=== PATIENT | female | born 1995 | race American Indian/Alaskan Native ===

== ENCOUNTER 2017-01-21 11:10 | Emergency (ER) | payer MEDICAID ==
[2017-01-21 11:49] VITALS: BP 114/61
[2017-01-21 12:47] LABS: Bilirubin,Urine NEG (Negative); Blood,Urine NEG (Negative); Ketones,Urine NEG (Negative); Leukocyte Esterase,Urine NEG (Negative); Mucus,Urine 1+ /HPF; Nitrite,Urine NEG (Negative); Protein,Urine <15 mg/dL mg/dL (Negative); Urobilinogen,Urine < 2.0 mg/dL (<2.0)
== END 2017-01-21 14:15 | disposition left against medical advice (07) ==
LOC: ED 11:10
DX: R63.4 Abnormal weight loss (principal); R10.30 Lower abdominal pain, unspecified; Z53.21 Procedure and treatment not carried out due to patient leaving prior to being seen by health care provider
CPT/HCPCS: 81001; 81025

== ENCOUNTER 2017-05-26 10:51 | Emergency (ER) | payer MEDICAID, OTHER ==
[2017-05-26 11:43] VITALS: BP 108/69
[2017-05-26 12:23] LABS: Bilirubin,Urine NEG (Negative); Blood,Urine MOD (Negative); Ketones,Urine TR mg/dL (Negative); Leukocyte Esterase,Urine NEG (Negative); Mucus,Urine 3+ /HPF; Nitrite,Urine NEG (Negative)
--- NOTE | 2017-05-26 12:58 | Emergency Department Report ---
Chief Complaint: Vaginal Bleeding Stated Complaint: VAG BLEEDING /+ TEST Time Seen by Provider: 05/26/17 12:56 - HPI History of Present Illness: Pt c/o vaginal bleeding. PT has positive home test - ROS Review of Systems: + bleeding - Exam Vital Signs: Vital Signs 05/26/17 11:39 Temperature 98.9 F Pulse Rate 65 Respiratory 16 Rate Blood Pressure 108/69 O2 Sat by Pulse 100 Oximetry Physical Exam: pt looks well, non toxic steady gait MSE screening note: Focused history and physical exam performed. Due to findings the following was ordered: labs, us ED Disposition for MSE Condition: Stable
--- NOTE | 2017-05-26 14:25 | Ultrasound Report ---
ULTRASOUND OB LESS THAN 14 WEEKS FETUS ULTRASOUND OB TRANSVAGINAL HISTORY: Bleeding during . FINDINGS: Transabdominal and transvaginal ultrasound imaging was performed. The uterus measures 10.6 x 4.9 x 7.1 cm. No uterine mass is detected. The endometrial stripe measures 10 mm. No intrauterine gestational sac is identified. The cervix is unremarkable. The right ovary measures 3.2 x 1.0 x 2.1 cm. The left ovary measures 3.6 x 2.0 x 3.1 cm. A 2.1 cm corpus luteum cyst is suspected in the left ovary. No pelvic fluid collection. IMPRESSION: No intrauterine is visualized. No heart tones were detected. The left ovary contains a 2.1 cm slightly complex cyst which probably represents a corpus luteum cyst. This may represent a spontaneous or very early . Please note that an ectopic is not entirely excluded at this time. Close interval followup is recommended.
[2017-05-26 15:19] LABS: Eosinophils % (Auto) 1.5 % (0.0-4.3); Hematocrit 37.8 % (30.3-42.9); Hemoglobin 12.8 gm/dl (10.1-14.3); Mean Corpuscular HGB Conc 34 % (30-34); Mean Corpuscular Hemoglobin 31 pg (28-32); Mean Corpuscular Volume 91 fl (79-97); Platelet Count 272 K/mm3 (140-440); Red Blood Count 4.17 M/mm3 (3.65-5.03); Red Cell Distribution Width 14.1 % (13.2-15.2); White Blood Count 4.6 K/mm3 (4.5-11.0)
[2017-05-26 15:25] LABS: Alanine Aminotransferase 11 units/L (7-56); Albumin 4.5 g/dL (3.9-5); Albumin/Globulin Ratio 1.4 %; Alkaline Phosphatase 24 units/L (35-129); Anion Gap 19 mmol/L; Blood Urea Nitrogen 14 mg/dL (7-17); Calcium 9.3 mg/dL (8.4-10.2); Carbon Dioxide 22 mmol/L (22-30); Chloride 102.5 mmol/L (98-107); Glucose 80 mg/dL (65-100); Sodium 139 mmol/L (137-145); Total Protein 7.7 g/dL (6.3-8.2)
[2017-05-26] MEDS ORDERED: DILAUDID IV ONE (16:09)
[2017-05-26] MEDS ORDERED: NACL 0.9% 1000 ML 1,000 ML IV ONE (16:09)
[2017-05-26] MEDS ORDERED: BENADRYL IV ONE (16:10)
[2017-05-26] MEDS ORDERED: ZOFRAN IV ONE (16:10)
--- NOTE | 2017-05-26 17:23 | Emergency Department Report ---
ED Female HPI - General Chief complaint: Vaginal Bleeding Stated complaint: VAG BLEEDING /+ TEST Time Seen by Provider: 05/26/17 12:56 Source: patient Mode of arrival: Ambulatory Limitations: No Limitations - History of Present Illness Initial comments: Patient states that she was having "back pain so I thought I was ". She took a test earlier this month that it was negative. She states her last normal menstrual period was April 28 and she is due about May 29. Over the last day she had some vaginal spotting and some crampy lower abdominal pain. Thereby she decided to come to the emergency department. Patient is status post 3 successful pregnancies normal vaginal delivery. The first was complicated by gestational diabetes. The patient denies any history of hypertension or preeclampsia. She's had no prior surgery. He said no prior pelvic infections. She states that this was planned/ desired. She performed two recent home tests and they were positive MD Complaint: vaginal bleeding -: week(s) Severity: mild (mild lower back discomfort) Quality: cramping (occasional cramping) Consistency: intermittent, now resolved Improves with: none Worsens with: none Are you Now?: Yes Associated Symptoms: denies other symptoms (except as above) - Related Data Sexually active: Yes Home Medications Medication Instructions Recorded Confirmed Last Taken No Known Home Medications [No 01/21/17 01/21/17 Unknown Reported Home Medications] Allergies Allergy/AdvReac Type Severity Reaction Status Date / Time No Known Allergies Allergy Unverified 01/21/17 11:50 ED Review of Systems ROS: Stated complaint: VAG BLEEDING /+ TEST Other details as noted in HPI Constitutional: denies: chills, fever Eyes: denies: eye pain, eye discharge, vision change ENT: denies: ear pain, throat pain Respiratory: denies: cough, shortness of breath, wheezing Cardiovascular: denies: chest pain, palpitations Endocrine: no symptoms reported Gastrointestinal: denies: abdominal pain, nausea, diarrhea Genitourinary: abnormal menses. denies: urgency, dysuria, discharge Musculoskeletal: back pain. denies: joint swelling, arthralgia Skin: denies: rash, lesions Neurological: denies: headache, weakness, paresthesias Psychiatric: denies: anxiety, depression Hematological/Lymphatic: denies: easy bleeding, easy bruising ED Past Medical Hx - Past Medical History Previous Medical History?: No Additional medical history: Now 4 para 3 AB 0 - Surgical History Past Surgical History?: No - Social History Smoking Status: Never Smoker Substance Use Type: None - Medications Home Medications: Home Medications Medication Instructions Recorded Confirmed Last Taken Type No Known Home Medications [No 01/21/17 01/21/17 Unknown History Reported Home Medications] ED Physical Exam - General Limitations: No Limitations General appearance: alert, in no apparent distress - Head Head exam: Present: atraumatic, normocephalic - Eye Eye exam: Present: normal appearance. Absent: scleral icterus - ENT ENT exam: Present: mucous membranes moist - Neck Neck exam: Present: normal inspection - Respiratory Respiratory exam: Present: normal lung sounds bilaterally. Absent: respiratory distress - Cardiovascular Cardiovascular Exam: Present: regular rate, normal rhythm. Absent: systolic murmur, diastolic murmur, rubs, gallop - GI/Abdominal GI/Abdominal exam: Present: soft, normal bowel sounds. Absent: distended, tenderness, guarding, rebound, rigid - Extremities Exam Extremities exam: Present: normal inspection - Back Exam Back exam: Present: normal inspection. Absent: CVA tenderness (R), CVA tenderness (L), muscle spasm, paraspinal tenderness, vertebral tenderness - Neurological Exam Neurological exam: Present: alert, oriented X3, CN II-XII intact. Absent: motor sensory deficit - Psychiatric Psychiatric exam: Present: normal affect, normal mood - Skin Skin exam: Present: warm, dry, intact, normal color. Absent: rash ED Course Vital Signs 05/26/17 11:39 Temperature 98.9 F Pulse Rate 65 Respiratory 16 Rate Blood Pressure 108/69 O2 Sat by Pulse 100 Oximetry - Reevaluation(s) Reevaluation #1: I discussed 05/26/17 17:25 Reevaluation #2: Assessment Dr. Alcocer. Being that the patient desires to continue this methotrexate is not ordered. Patient's total bilirubin is noted with normal liver function tests. Uncertain if this is Gilbert's or other etiology. Follow-up is indicated. Dr. Alcocer will see the patient at 1:30 tomorrow in her [place] office. 05/26/17 17:31 ED Medical Decision Making - Lab Data Result diagrams: 05/26/17 14:32 05/26/17 14:32 Laboratory Results - last 24 hr 05/26/17 05/26/17 05/26/17 12:12 14:32 14:32 WBC 4.6 RBC 4.17 Hgb 12.8 Hct 37.8 MCV 91 MCH 31 MCHC 34 RDW 14.1 Plt Count 272 Lymph % (Auto) 42.1 H [place] % (Auto) 6.1 Eos % (Auto) 1.5 Baso % (Auto) 1.0 Lymph # 1.9 [place] # 0.3 Eos # 0.1 Baso # 0.0 Seg Neutrophils % 49.3 Seg Neutrophils # 2.3 Sodium 139 Potassium 4.0 Chloride 102.5 Carbon Dioxide 22 Anion Gap 19 BUN 14 Creatinine 0.5 L Estimated GFR > 60 BUN/Creatinine Ratio 28.00 Glucose 80 Calcium 9.3 Total Bilirubin 2.20 H AST 20 ALT 11 Alkaline Phosphatase 24 L Total Protein 7.7 Albumin 4.5 Albumin/Globulin Ratio 1.4 HCG, Quant Urine Color Yellow Urine Turbidity Clear Urine pH 5.0 Ur Specific [place] 1.029 Urine Protein 30 mg/dl Urine Glucose (UA) Neg Urine Ketones Tr Urine Blood Mod Urine Nitrite Neg Urine Bilirubin Neg Urine Urobilinogen 4.0 Ur Leukocyte Esterase Neg Urine WBC (Auto) 1.0 Urine RBC (Auto) 2.0 U Epithel Cells (Auto) 2.0 Urine Mucus 3+ Urine HCG, Qual Positive A Blood Type 05/26/17 05/26/17 14:32 14:32 WBC RBC Hgb Hct MCV MCH MCHC RDW Plt Count Lymph % (Auto) [place] % (Auto) Eos % (Auto) Baso % (Auto) Lymph # [place] # Eos # Baso # Seg Neutrophils % Seg Neutrophils # Sodium Potassium Chloride Carbon Dioxide Anion Gap BUN Creatinine Estimated GFR BUN/Creatinine Ratio Glucose Calcium Total Bilirubin AST ALT Alkaline Phosphatase Total Protein Albumin Albumin/Globulin Ratio HCG, Quant 1740 H Urine Color Urine Turbidity Urine pH Ur Specific [place] Urine Protein Urine Glucose (UA) Urine Ketones Urine Blood Urine Nitrite Urine Bilirubin Urine Urobilinogen Ur Leukocyte Esterase Urine WBC (Auto) Urine RBC (Auto) U Epithel Cells (Auto) Urine Mucus Urine HCG, Qual Blood Type A POSITIVE - Radiology Data interpreted by me: I received a call from Dr. Andrews who stated there might be a discrepancy from the prior ultrasound report. He described a left adnexal mass 2 cm an ectopic could not be excluded. There was no significant fluid in the cul-de- sac nor any free fluid. Critical care attestation.: If time is entered above; I have spent that time in minutes in the direct care of this critically ill patient, excluding procedure time. ED Disposition Clinical Impression: First trimester bleeding, Elevated bilirubin Disposition: DC- TO HOME OR SELFCARE Is pt being admited?: No Does the pt Need Aspirin: No Condition: Stable Instructions: Threatened Miscarriage (ED), Ectopic (ED) Additional Instructions: See Dr. Alcocer in her [place] office tomorrow at 1:30. Return any acute change or problem. Referrals: PRIMARY CARE, [Primary Care Provider] - 24 Hours TERESA ALCOCER MD [Staff Physician] - 3-5 Days Time of Disposition: 17:34
== END 2017-05-26 17:43 | disposition home or self-care (01) ==
LOC: ED 10:51
DX: O20.9 Hemorrhage in early pregnancy, unspecified (principal); E80.7 Disorder of bilirubin metabolism, unspecified
CPT/HCPCS: 36415; 76801; 76817; 80053; 81001; 81025; 84702; 85025; 86900; 86901

== ENCOUNTER → 2017-05-27 | Emergency (ER) | payer OTHER | END | disposition left against medical advice (07) | LOC: ED 05:44 | DX: N93.9 Abnormal uterine and vaginal bleeding, unspecified (principal); Z53.21 Procedure and treatment not carried out due to patient leaving prior to being seen by health care provider ==